=== PATIENT | female | born 1950 | race Caucasian/White ===

== ENCOUNTER → 2018-04-24 11:03 | Day surgery (SDC) | payer MEDICARE, MEDICAID ==
[~2018-04-24 11:03] MED LIST: Acetaminophen TAB* 325 MG PO PRN; Buffered Lidocaine 0.9% SYRIN* 5 ML/SYR SYRINGE INTRADERM ONE; Dexamethasone IV* 4 MG/ML 1 ML (4 MG) ONE; EPHEDrine (Pressors)* 50 MG/ML VIAL ONE; Famotidine IV* 10 MG/ML 2 ML (20 mg) ONE; Labetalol IV* 5 MG/ML 20 ML VIAL ONE; Levalbuterol 1.25MG/0.5ML NEB INH PRN; Levalbuterol HFA INHALER* 1 PUFF MDI ONE; Lidocaine 1% MPF wEPI 200,000* 30 ML SDV ONE; Lidocaine 2% PF * 5 ML VIAL ONE; Midazolam* 1 MG/ML 2 ML VIAL (2 MG) ONE; Mivacurium Chloride* 20 MG/10 ML VIAL IV ONE; Naloxone* 0.4 MG/ML 1 ML VIAL IV PRN; Ondansetron ODT TAB* 4 MG PO PRN; PROCHLORPERAZINE INJ 5 MG/ML 2 ML VIAL IV PRN; Propofol* 10 MG/ML 20 ML BTL IV PUSH ONE; fentaNYL* 50 MCG/ML 2 ML VIAL (100 MCG VIAL) IV PRN; fentaNYL* 50 MCG/ML 2 ML VIAL (100 MCG VIAL) ONE
[2018-04-24 15:07] VITALS: BP 102/71
--- NOTE | 2018-04-24 15:30 | RAD ---
INDICATION: Bronchoscopy with biopsy. Evaluate for pneumothorax COMPARISON: Chest x-ray May 26, 2014; CT chest March 20, 2018 TECHNIQUE: An AP portable view obtained at 1426 hours is submitted. FINDINGS: Bones/Soft Tissues: There are no acute bony findings. Cardiomediastinal: The cardiomediastinal silhouette is normal. Lungs: There is diffuse interstitial infiltrate in the right lower chest. The remaining lung wilhelm are essentially clear. There is no pneumothorax. Pleura: There are no pleural effusions. Other: None IMPRESSION: RIGHT CHEST INFILTRATIVE CHANGES. NO PNEUMOTHORAX.
--- NOTE | 2018-04-24 15:38 | RAD ---
INDICATION: Bronchoscopy COMPARISON: None FINDINGS: 52.9 seconds of fluoroscopy were provided for the pulmonary department. Fluoroscopic spot imaging of the chest were obtained for operative control. CPT II Codes: G9500 (fluoro time doc)
--- NOTE | 2018-04-25 07:11 | PRO ---
BRONCHOSCOPY REPORT: DATE OF PROCEDURE: 04/24/18 PROCEDURE PERFORMED: Bronchoscopy with endobronchial biopsy, transbronchial biopsy, and bronchoalveolar lavage. PREPROCEDURAL DIAGNOSES: Possible endobronchial lesion and infiltrate, right middle lobe. ANESTHESIA: General anesthesia. ANESTHESIOLOGIST: Dr. Graves. DESCRIPTION OF PROCEDURE: Informed consent was obtained from the patient prior to the procedure after all the risks and benefits were thoroughly explained. The patient recently was evaluated for cough with chest x-ray and CT chest, which showed questionable endobronchial lesion in right intermediate bronchus and airspace opacities in right middle lobe area. The patient was intubated with size 7.5 endotracheal tube prior to the procedure. SCDs were placed and Elidia Hugger was placed. The patient was supine on operating table. Flexible Olympus bronchoscope was then inserted through the ET tube for airway inspection. The patient noted to have thick white secretions, which were suctioned out. No lesions were noted in the trachea. Bronchoscope was then inserted into the left bronchial tree, which was inspected. Evidence of hyperemia of the mucosa was noted. There was evidence of mild bronchomalacia. Bronchoscope was then inserted into right bronchial tree, which was then inspected. No endobronchial lesions were noted. Bronchoscope was then inserted into right intermediate bronchus. There was evidence of tortuosity of intermediate bronchus with no obvious endobronchial lesions. There was also evidence of bronchomalacia on the right side. There was some irregularity of the mucosa and endobronchial narrowing that was noted without any lesions. Endobronchial biopsies were obtained from mucosal irregularities in middle lobe bronchus and also intermediate bronchus. Bronchial washings were obtained from right middle lobe area. Transbronchial biopsies were obtained with 5 passes from right middle lobe. Specimen was placed in formalin and sent to the lab. The patient was extubated and seen in Recovery in optimal condition. The patient tolerated the procedure well. Postprocedure chest x-ray was ordered and is pending at the time of dictation. [id number]/[facility] #: [id number] [facility]
== END | disposition home or self-care (01) ==
LOC: OR 11:03
PROVIDERS: ATTEND Internal Medicine
DX: J98.4 Other disorders of lung (principal); J44.9 Chronic obstructive pulmonary disease, unspecified; E03.9 Hypothyroidism, unspecified; I10 Essential (primary) hypertension; F17.200 Nicotine dependence, unspecified, uncomplicated
CPT/HCPCS: 71045; 76000; 87070; 87102; 87116; 87205; 87206; 88112; 88305; A9270-GY; J1100; J2001; J2250; J2704; J3010